=== PATIENT | male | born 1950 | race Two or more races ===

== ENCOUNTER 2019-09-02 09:39 | Outpatient (CLI) | payer OTHER | END 2019-09-02 09:43 | disposition home or self-care (01) | LOC: LAB 09:39 | DX: D68.8 Other specified coagulation defects (principal); E78.2 Mixed hyperlipidemia; N39.0 Urinary tract infection, site not specified; R07.9 Chest pain, unspecified ==

== ENCOUNTER 2021-09-18 07:30 | Outpatient (CLI) | payer OTHER | END 2021-09-18 07:31 | disposition home or self-care (01) | LOC: NUCLEAR 07:30 | PROVIDERS: ATTEND Specialist | DX: I25.9 Chronic ischemic heart disease, unspecified (principal); E78.00 Pure hypercholesterolemia, unspecified | CPT/HCPCS: 78452; 93017; A9500 ==